=== PATIENT | male | born 1945 | race Caucasian/White ===

== ENCOUNTER → 2016-11-09 | Outpatient (CLI) | payer OTHER ==
[~2016-11-09] MED LIST: ADALAT CC60 MG PO; ALLOPURINOL100 MG PO; METOPROLOL SR25 MG PO; METOPROLOL SR50 MG PO; PHOS LO667 MG PO; PRAVASTATIN SOD40 MG PO; PRILOSEC20 MG PO; QUINAPRIL40 MG PO; SERTRALINE50 MG PO
[2016-11-09 11:07] LABS: CHOLESTEROL 127 mg/dL (<200); HDL CHOLESTEROL 63 mg/dl (40-60); LDL CHOLESTEROL 46 mg/dL (9-159); TRIGLYCERIDES 89 mg/dl (<150); VLDL CHOLESTEROL 18 mg/dL (6-40)
== END | disposition home or self-care (01) ==
LOC: LAB 10:21
PROVIDERS: Internal Medicine
DX: I10 Essential (primary) hypertension (principal); I25.9 Chronic ischemic heart disease, unspecified

== ENCOUNTER → 2017-06-24 | Outpatient (CLI) | payer OTHER | END | disposition home or self-care (01) | LOC: LAB 13:18 | DX: R19.7 Diarrhea, unspecified (principal) ==

== ENCOUNTER → 2017-08-01 | Outpatient (CLI) | payer OTHER | LOC: LAB 10:45 | DX: R19.7 Diarrhea, unspecified (principal) ==

== ENCOUNTER → 2017-09-02 | Outpatient (CLI) | payer OTHER | END | disposition home or self-care (01) | LOC: LAB 10:40 | DX: R19.7 Diarrhea, unspecified (principal) ==

== ENCOUNTER → 2017-10-11 | Outpatient (CLI) | payer OTHER ==
[2017-10-11 12:18] LABS: BILIRUBIN, DIRECT 0.2 mg/dL (0.0-0.2); CREATININE 4.28 mg/dL (0.70-1.30); POTASSIUM 3.8 mmol/L (3.5-5.1); TOTAL PROTEIN 7.2 gm/dL (6.4-8.2)
== END | disposition home or self-care (01) ==
LOC: LAB 10:52
PROVIDERS: Internal Medicine Cardiovascular Disease
DX: I12.0 Hypertensive chronic kidney disease with stage 5 chronic kidney disease or end stage renal disease (principal); N18.6 End stage renal disease; E78.5 Hyperlipidemia, unspecified; Z99.2 Dependence on renal dialysis; I25.5 Ischemic cardiomyopathy

== ENCOUNTER → 2018-01-01 | Outpatient (CLI) | payer OTHER ==
[2018-01-01 09:52] LABS: BASO % 0.6 % (0.0-1.0); EOS # 0.5 10*3/uL (0.0-0.4); EOS % 8.2 % (1.0-4.0); HEMATOCRIT 40.4 % (42.0-52.0); HEMOGLOBIN 12.9 g/dl (14.0-18.0); LYMPH # 0.7 10*3/uL (1.3-4.4); LYMPH % 11.6 % (27.0-41.0); MEAN CELL VOLUME 96.9 fl (80.0-94.0); MEAN CORPUSCULAR HGB 30.9 pg (27.0-31.0); MEAN CORPUSCULAR HGB CONC 31.9 g/dl (33.0-37.0); MEAN PLATELET VOLUME 10.1 fl (9.6-12.3); MONO # 0.4 10*3/uL (0.1-1.0); MONO % 6.3 % (3.0-9.0); NEUT # 4.6 10*3/uL (2.3-7.9); PLATELET COUNT AUTOMATED 126 10*3/uL (130-400); RED BLOOD COUNT 4.17 10*6/uL (4.50-5.90); RED CELL DISTRI WIDTH 13.6 % (0-14.5); WHITE BLOOD COUNT 6.3 10*3/uL (4.8-10.8)
[2018-01-01 10:23] LABS: CREATININE 5.83 mg/dL (0.70-1.30); POTASSIUM 4.5 mmol/L (3.5-5.1); TOTAL PROTEIN 7.1 gm/dL (6.4-8.2)
== END | disposition home or self-care (01) ==
LOC: LAB 09:18
PROVIDERS: Internal Medicine
DX: I25.9 Chronic ischemic heart disease, unspecified (principal); I10 Essential (primary) hypertension; Z68.23 Body mass index [BMI] 23.0-23.9, adult

== ENCOUNTER 2018-02-23 11:19 | Emergency (ER) | payer OTHER ==
[~2018-02-23] VITALS: Ht 180.3 cm; Wt 71.7 kg
[2018-02-23] MEDS ORDERED: SEPTDS PO (11:53)
[2018-02-23] MEDS ORDERED: KEFLEX500 M1 PO (11:53)
[2018-03-18] MEDS ORDERED: PROTONIX40 M1 PO (08:57)
[2018-03-18] MEDS ORDERED: ISORDIL10 M1 PO (08:58)
[2018-03-18] MEDS ORDERED: HEART PILL PO (08:59)
[2018-03-18] MEDS ORDERED: ALDACTONE25 MG PO (09:00)
[2018-03-18] MEDS ORDERED: RENAL CAPS SOFTG1 MG PO (09:01)
[2018-03-18] MEDS ORDERED: CALCIUM ACETAT667 MG PO (11:43)
[2018-03-18] MEDS ORDERED: TOPROL XL25 MG PO (11:44)
[2018-03-18] MEDS ORDERED: TOPROL XL50 M1 PO (11:44)
[2018-03-18] MEDS ORDERED: Synthroid,Levo50 MCG PO (11:45)
[2018-03-18] MEDS ORDERED: NIFEDIPINE ER60 M1 PO (11:46)
[2018-03-18] MEDS ORDERED: IMDUR SA60 M1 PO (15:44)
[2018-03-18] MEDS ORDERED: ZOLOFT50 MG PO (15:48)
[2018-03-18] MEDS ORDERED: METAMUCIL FIBE3.4 GM PO (15:50)
[2018-03-18] MEDS ORDERED: IMODIUM A-D2 M2 PO (21:10)
[2018-03-20] MEDS ORDERED: TOPROL XL50 M1 PO (16:14)
== END 2018-02-23 11:57 | disposition home or self-care (01) ==
LOC: ED 11:19
DX: L02.414 Cutaneous abscess of left upper limb (principal); R03.0 Elevated blood-pressure reading, without diagnosis of hypertension; Z79.899 Other long term (current) drug therapy; Z88.5 Allergy status to narcotic agent

== ENCOUNTER → 2018-07-15 | Outpatient (CLI) | payer OTHER ==
[~2018-07-15] MED LIST changes: +ALDACTONE25 MG PO; +CALCIUM ACETAT667 MG PO; +HEART PILL PO; +IMDUR SA60 M1 PO; +IMODIUM A-D2 M2 PO; +ISORDIL10 M1 PO; +KEFLEX500 M1 PO; +METAMUCIL FIBE3.4 GM PO; +NIFEDIPINE ER60 M1 PO; +PROTONIX40 M1 PO; +RENAL CAPS SOFTG1 MG PO; +SEPTDS PO; +Synthroid,Levo50 MCG PO; +TOPROL XL25 MG PO; +TOPROL XL50 M1 PO; +ZOLOFT50 MG PO
== END | disposition home or self-care (01) ==
LOC: LAB 07-14 16:07
DX: R19.7 Diarrhea, unspecified (principal)

== ENCOUNTER → 2018-08-03 | Outpatient (CLI) | payer OTHER ==
[2018-08-10 18:03] LABS: FATS, NEUTRAL Normal (.); FATS, TOTAL Normal (.)
== END ==
LOC: LAB 10:03
PROVIDERS: Internal Medicine Gastroenterology
DX: R19.7 Diarrhea, unspecified (principal)

== ENCOUNTER → 2018-08-04 | Outpatient (CLI) | payer OTHER ==
[2018-08-05 15:04] LABS: t-TRANSGLUTAMINASE (tTG) IGA <2 U/mL (0-3)
== END | disposition home or self-care (01) ==
LOC: LAB 02:57
PROVIDERS: Internal Medicine Gastroenterology
DX: R19.7 Diarrhea, unspecified (principal)

== ENCOUNTER → 2019-02-06 | Outpatient (CLI) | payer OTHER ==
[~2019-02-06] MED LIST changes: +METOPROLOL SUCC50 M1 PO
[2019-02-06 10:41] LABS: BASO % 0.4 % (0.0-1.0); EOS # 0.3 10*3/uL (0.0-0.4); EOS % 5.1 % (1.0-4.0); HEMATOCRIT 45.1 % (42.0-52.0); HEMOGLOBIN 14.7 g/dl (14.0-18.0); LYMPH # 0.8 10*3/uL (1.3-4.4); LYMPH % 15.3 % (27.0-41.0); MEAN CELL VOLUME 97.8 fl (80.0-94.0); MEAN CORPUSCULAR HGB 31.9 pg (27.0-31.0); MEAN CORPUSCULAR HGB CONC 32.6 g/dl (33.0-37.0); MEAN PLATELET VOLUME 10.6 fl (9.6-12.3); MONO # 0.3 10*3/uL (0.1-1.0); MONO % 6.3 % (3.0-9.0); NEUT # 3.6 10*3/uL (2.3-7.9); NEUT % 72.7 % (47.0-73.0); PLATELET COUNT AUTOMATED 105 10*3/uL (130-400); RED BLOOD COUNT 4.61 10*6/uL (4.50-5.90); WHITE BLOOD COUNT 4.9 10*3/uL (4.8-10.8)
[2019-02-06 10:47] LABS: INTERNATIONAL NORM RATIO 1.1 (2.0-3.5)
[2019-02-06 11:19] LABS: ALBUMIN 3.1 gm/dl (3.1-4.5); BILIRUBIN, DIRECT 0.1 mg/dL (0.0-0.2); CREATININE 6.64 mg/dL (0.70-1.30); POTASSIUM 4.2 mmol/L (3.5-5.1); TOTAL PROTEIN 7.2 gm/dL (6.4-8.2)
[2019-02-07 07:08] LABS: AFP TUMOR MARKER 002253 12.8 ng/mL (0.0-8.3); ALPHA-1-ANTITRYPSIN, SERUM 155 mg/dL (90-200); IMMUNOGLOBULIN G, QNT 1175 mg/dL (700-1600); IMMUNOGLOBULIN M, QNT 62 mg/dL (15-143)
[2019-02-07 13:04] LABS: HEPATITIS B SURFACE AB 006395 Reactive (.); HEPATITIS B SURFACE AG Negative (Negative)
[2019-02-08 15:07] LABS: ANTI-SMOOTH MUSCLE ANTIBODY 8 Units (0-19)
[2019-02-08 15:07] LABS: LIVER-KIDNEY MICROSOMAL AB <1.0 Units (0.0-20.0)
[2019-02-08 16:08] LABS: EBV NUCLEAR ANTIGEN IGG <18.0 U/mL (0.0-17.9); EPSTEIN-BARR VCA IGG AB <18.0 U/mL (0.0-17.9); EPSTEIN-BARR VCA IGM AB <36.0 U/mL (0.0-35.9)
[2019-02-09 07:05] LABS: AST (SGOT) P5P 20 IU/L (0-40); CHOLESTEROL, TOTAL 135 mg/dL (100-199); GLUCOSE, SERUM 76 mg/dL (65-99); TRIGLYCERIDES 131 mg/dL (0-149)
[2019-02-09 09:09] LABS: CMV QNT Negative (Negative)
== END | disposition home or self-care (01) ==
LOC: LAB 08:19
PROVIDERS: Internal Medicine Gastroenterology
DX: Z11.4 Encounter for screening for human immunodeficiency virus [HIV] (principal); Z11.59 Encounter for screening for other viral diseases; Z01.818 Encounter for other preprocedural examination; R93.2 Abnormal findings on diagnostic imaging of liver and biliary tract; R16.1 Splenomegaly, not elsewhere classified; D69.9 Hemorrhagic condition, unspecified

== ENCOUNTER 2019-03-13 21:18 | Inpatient (IN) | payer OTHER ==
[~2019-03-13] VITALS: Ht 177.8 cm; Wt 74.0 kg
--- NOTE | ~2019-03-13 | EKG ---
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
--- NOTE | ~2019-03-13 | CON ---
[place], [place] REPORT OF CONSULTATION NAME: POLLY MONROE UNIT #: [id number] ROOM: 420 DOCTOR: MEENAKSHI ALDANA MD BIRTHDATE: [birth year] DOS: 03/14/2019 ADDENDUM This is an addendum to the consult note done by the nurse practitioner, Alannah Hampton, on 03/14/2019. I agree with the assessment and plan, reviewed the labs and imaging, made the necessary changes in the note. Meenakshi Aldana MD CM:CONSTR:REPORT OF CONSULTATION 1655 03/16/19 0355 interface
--- NOTE | ~2019-03-13 | CON ---
[place], [place] REPORT OF CONSULTATION NAME: POLLY MONROE UNIT #: [id number] ROOM: 420 DOCTOR: LEEANNE PLATA,NOVEMBER BIRTHDATE: [birth year] DOS: 03/14/2019 HISTORY OF PRESENT ILLNESS: The patient is a 73-year-old male who was admitted from home yesterday. He had been found by neighbors wandering in the street with only pajama, pants and open shirt, very confused and yelling. He was taken back to his house by his neighbors. His had been briefly to the store for something that he requested. Police and an ambulance were called. He had had progressively worsening confusion over the last 9 days as well as not feeling well and poor appetite. He was seen in the ER here approximately 5 days ago, was felt to possibly have viral infection. History is obtained per review of the chart and discussion with the patient's as the patient is very confused and unable to give any history. Over the last 9 days, he had no fevers at home, no rashes, has had one day of abdominal pain. No complaints of headaches, not really much in the way of constitutional complaints. According to his , he did have a temperature of 103 here at one point and then again at 101. He had an episode similar to this in 2016 when he had what sounds like was a herpetic encephalitis, started on acyclovir. He did have a lumbar puncture in the ER. HSV by PCR is pending as well as other workup. CSF Gram stain had no organisms and no wbc's. Blood cultures remained sterile. WBCs were 6, 100% lymphocytes, protein was 94.7, glucose 51. He also had a cryptococcal antigen check from the CSF. PAST MEDICAL HISTORY: As above as well as hemodialysis dependent due to polycystic kidney disease, prostate cancer, normocytic anemia, L2 vertebral fracture, hypothyroidism, GERD. He has had a colostomy and then reversal of that, coronary artery stent, left nephrectomy, left knee surgery. SOCIAL HISTORY: , nonsmoker, nondrinker, no illicit drug use. FAMILY MEDICAL HISTORY: Mother with polycystic kidney disease. Father at the age of 87, reason unknown. ALLERGIES: DEMEROL. CURRENT MEDICATIONS: Ativan, heparin, acyclovir, Protonix, Zofran, milk of mag, Higbee, Dulcolax, Tylenol. LABORATORY DATA: CSF as above. WBCs 5.6, platelets 145. Slight left shift with neutrophils 82.5. BUN is 26, creatinine 4.98. Lactic acid was 1.0 on admission. LFTs are within normal limits. REVIEW OF SYSTEMS: Unable to obtain any review of systems from the patient, although he does currently deny pain. He is extremely confused, does not know where he is, situation, etc. History is as per his as above. There were no fevers documented here. PHYSICAL EXAMINATION: VITAL SIGNS: Temperature 97.9, pulse 105, respirations 18, BP 132/64. GENERAL: A 73-year-old male, very confused, in no acute distress. HEENT: Normocephalic, atraumatic. Pupils equal, round and reactive to light. [place], [place] REPORT OF CONSULTATION NAME: POLLY MONROE UNIT #: [id number] ROOM: 420 DOCTOR: LEEANNE PLATANOVEMBER BIRTHDATE: [birth year] Oropharynx is clear. No thrush. Tacky mucous membranes. No cervical lymphadenopathy. NECK: Supple without pain. LUNGS: Clear to auscultation bilaterally. Respirations even and unlabored. HEART: Regular rhythm. No murmur appreciated. ABDOMEN: Soft, nontender. Multiple scars and soft reducible hernias noted. EXTREMITIES: No edema, deformity or cyanosis. Has +2 bilateral radial and +2 bilateral dorsalis pedis pulses. Left upper extremity AV fistula, positive thrill. No erythema or tenderness. ASSESSMENT: Encephalopathy. He has a history of HSV encephalitis. CT of the head is unremarkable for any acute pathology. LP is not impressive. PLAN: At this point, we will continue the acyclovir. Await the HSV by PCR. He is also on fluids as per his attending, which is necessary in the setting of the IV acyclovir to help prevent kidney injury. He is awaiting transfer to [facility] where he needs to have an MRI of the brain, which we are unable to do here at this time. NOVEMBER BONI FALLON Meenakshi Preciado MD CM:CONSTR:REPORT OF CONSULTATION 1643 03/14/19 1711 interface
[2019-03-13 21:19] VITALS: BP 143/78
[2019-03-13 21:51] LABS: BASO % 0.2 % (0.0-1.0); EOS # 0.1 10*3/uL (0.0-0.4); EOS % 0.9 % (1.0-4.0); HEMATOCRIT 39.3 % (42.0-52.0); HEMOGLOBIN 12.7 g/dl (14.0-18.0); LYMPH # 0.5 10*3/uL (1.3-4.4); LYMPH % 9.4 % (27.0-41.0); MEAN CELL VOLUME 95.9 fl (80.0-94.0); MEAN CORPUSCULAR HGB CONC 32.3 g/dl (33.0-37.0); MEAN PLATELET VOLUME 10.1 fl (9.6-12.3); MONO # 0.4 10*3/uL (0.1-1.0); MONO % 6.1 % (3.0-9.0); NEUT # 4.8 10*3/uL (2.3-7.9); NEUT % 82.7 % (47.0-73.0); PLATELET COUNT AUTOMATED 166 10*3/uL (130-400); RED CELL DISTRI WIDTH 13.8 % (0-14.5); WHITE BLOOD COUNT 5.8 10*3/uL (4.8-10.8)
[2019-03-13 22:02] LABS: ACT PARTIAL THROMBO TIME 29.1 SECONDS (20.0-32.1); INTERNATIONAL NORM RATIO 1.2 (2.0-3.5)
[2019-03-13 22:05] LABS: ALBUMIN 2.4 gm/dl (3.1-4.5); ALKALINE PHOSPHATASE 105 U/L (45-117); BUN 24 mg/dl (7-24); CHLORIDE 97 mmol/L (98-107); CREATININE 4.32 mg/dL (0.70-1.30); LIPASE 218 U/L (73-393); POTASSIUM 3.3 mmol/L (3.5-5.1); SGOT/AST 20 IU/L (3-35); SGPT/ALT 19 U/L (12-78); SODIUM 139 mmol/L (136-145)
[2019-03-13 22:08] LABS: ACETAMINOPHEN (TYLENOL) < 5.0 ug/ml (10-30); ETHYL ALCOHOL < 3.0 mg/dl (<3)
--- NOTE | 2019-03-13 22:20 | NUR ---
PT PROVIDED URINAL AND PROMOTED FOR URINE SAMPLE. STATES HE USUALLY NEVER URINATES D/T DIALYSIS BUT WILL ATTEMPT. REFUSES CATHETERIZATION.
[2019-03-13 22:30] VITALS: BP 141/78
[2019-03-13 23:26] VITALS: BP 143/79
[2019-03-13 23:35] VITALS: BP 132/77
[2019-03-13 23:45] VITALS: BP 155/78
[2019-03-13 23:55] VITALS: BP 188/99
[2019-03-14] VITALS (9 sets, daily range): BP systolic 126–157; BP diastolic 64–85
--- NOTE | 2019-03-14 | NUR ---
DR GARCIA NOTIFIED OF PATIENT INABILITY TO PROVIDE URINE SPECIMEN
[2019-03-14 00:41] LABS: CSF RBC < 1000 /uL; CSF WBC 6 /uL
[2019-03-14 00:50] LABS: CSF GLUCOSE 51 mg/dL (40-70); CSF TOTAL PROTEIN 94.7 mg/dL (15-45)
[2019-03-14 00:59] LABS: CLARITY CLEAR; COLOR COLORLESS
[2019-03-14 01:21] LABS: CSF LYMPHOCYTES 100 % (40-80)
--- NOTE | 2019-03-14 01:27 | NUR ---
A 73, admitted to , under the services of VAHE Barlow DO with a diagnosis of METABOLIC ENCEPHALOPATHY. Chief complaint is ALTERED MENTAL STATUS. Patient arrived via stretcher from ER. Monitor applied. Initial assessment completed. Vital signs taken and recorded. VAHE BARLOW DO notified of admission to the unit. Orders received. See assessment for past medical history, medications and allergies. Patient and/or family oriented to unit. [facility] ROOM 420 visitation policy reviewed. Clothing/patient valuable form completed. CAMILLE BRAUN
--- NOTE | 2019-03-14 03:31 | NUR ---
PATIENT AGGITATED AND RESTLESS, SETTING OF BED ALARM AND YELLING, MEDICATED WITH ATATARX 10MG ORDERED X 1 DOSE.
--- NOTE | 2019-03-14 04:31 | NUR ---
PATIENTS YELLING DECREASED, REMAINS AGGITATED,ATTEMPTS MADE TO REDIRECT PATIENT, GIVEN WARM BLANKET.
--- NOTE | 2019-03-14 05:30 | NUR ---
PATIENT REMAINS AGGITATED AND BECOMING COMBATIVE, PULLING OFF HEART MONITOR UNABLE TO REDIRECT, YELLING AND SCREAMING. NOTIFIED DR. MEEKS
--- NOTE | 2019-03-14 05:57 | NUR ---
PATIENT MEDICATED ORDERED WITH ATARAX 10MG.
--- NOTE | 2019-03-14 06:15 | NUR ---
NO EFFECT FROM ATARAX, ORDERED LORAZEPAM 0.5MG
--- NOTE | 2019-03-14 06:15 | NUR ---
CALLED DR. MEEKS AND NOTIFIED HIM PT. BEHAVIOR ESCALATING PT. YELLING AT STAFF AND COMING AT STAFF. OTHER RN'S WERE ABLE TO CALM PATIENT TO A POINT OF THE PATIENT SITTING BACK DOWN IN THE BED. RN CALLED AND SHE IS TO BE COMING.
--- NOTE | 2019-03-14 06:33 | NUR ---
CALLED [facility] TO HAVE ATIVAN STAT.
[2019-03-14 07:03] LABS: BASO % 0.2 % (0.0-1.0); EOS # 0.1 10*3/uL (0.0-0.4); EOS % 1.1 % (1.0-4.0); HEMATOCRIT 39.5 % (42.0-52.0); HEMOGLOBIN 12.5 g/dl (14.0-18.0); LYMPH # 0.6 10*3/uL (1.3-4.4); LYMPH % 10.8 % (27.0-41.0); MEAN CELL VOLUME 96.8 fl (80.0-94.0); MEAN CORPUSCULAR HGB 30.6 pg (27.0-31.0); MEAN CORPUSCULAR HGB CONC 31.6 g/dl (33.0-37.0); MEAN PLATELET VOLUME 10.2 fl (9.6-12.3); MONO # 0.3 10*3/uL (0.1-1.0); MONO % 4.9 % (3.0-9.0); NEUT # 4.6 10*3/uL (2.3-7.9); NEUT % 82.5 % (47.0-73.0); PLATELET COUNT AUTOMATED 145 10*3/uL (130-400); RED BLOOD COUNT 4.08 10*6/uL (4.50-5.90); RED CELL DISTRI WIDTH 13.9 % (0-14.5); WHITE BLOOD COUNT 5.6 10*3/uL (4.8-10.8)
[2019-03-14 07:32] LABS: ALBUMIN 2.5 gm/dl (3.1-4.5); CREATININE 4.98 mg/dL (0.70-1.30); PHOSPHOROUS 2.1 mg/dL (2.5-4.9); POTASSIUM 3.1 mmol/L (3.5-5.1); TOTAL PROTEIN 6.7 gm/dL (6.4-8.2)
[2019-03-14 07:38] LABS: THYROID STIM HORMONE (HS) 2.44 uIU/ml (0.358-4.75)
[2019-03-14 07:42] LABS: VITAMIN D, 25-HYDROXY 22.3 ng/mL (30-100)
[2019-03-14 07:47] LABS: INTERNATIONAL NORM RATIO 1.2 (2.0-3.5)
--- NOTE | 2019-03-14 07:47 | NUR ---
CALL PLACED TO ANSWERING SERVICE, SPOKE WITH TRISTAN, ADVISED DR. BARR WILL BE CALLING IN HE IS ASSURANCE SENIOR FOR [facility].
--- NOTE | 2019-03-14 08:00 | NUR ---
CALL PLACED TO DR. SOLIS COVERING FOR DR. DAMIAN FOR CONSULT FOR POSSIBLE VIRAL ENCEPHLOPATHY.
--- NOTE | 2019-03-14 14:30 | NUR ---
PT VERY CONFUSED AND TRYING TO LEAVE. HE STATES WE ARE CONSPIRING TO "KEEP HIM HERE UNTIL THEY PUT HIM IN THE NUT [place]!" HE IS YELLING AND PUSHING STAFF. DR AVENDAÑO INFORMED.
--- NOTE | 2019-03-14 19:00 | NUR ---
PT AWAKE IN BED DURING BEDSIDE SHIFT REPORT. NO C/O VOICED. BED IN LOW POSITION W/WHEELS LOCKED AND ALARM ON. CALL LIGHT IN REACH.
--- NOTE | 2019-03-14 20:35 | NUR ---
HELENE W/DR. BARR RE PT BEING TRANSFERRED TO [facility]. ADVISED THAT THERE IS NO NURSES NOTE OR PHYSICIAN NOTE RE TRANSFER. ONE CALL PHONED AND THEY ARE AWAITING FOR A BED AT THIS TIME.
--- NOTE | 2019-03-14 20:47 | NUR ---
DR. BARR NOTIFIED OF WE ARE WAITING ON A BED AT [facility]. ASKED TO MAKE SURE THAT DR. FAUSTINO Marina/HAYDEE IS CONSULTED WHEN TRANSFERRED.
[2019-03-15] VITALS: BP 148/73
--- NOTE | 2019-03-15 02:23 | NUR ---
PT CONTINUOUSLY GETTING OOB UNASSISTED. GAIT UNSTEADY. PT CONFUSED TO TIME AND PLACE. RE-ORIENTATION INEFFECTIVE. PT ASSISTED TO AMBULATE IN HALLWAY THEN BACK TO BED. MEDICATED W/ATIVAN IVP 1MG ORDERED. BED ALARM ON AND CALL LIGHT IN REACH.
--- NOTE | 2019-03-15 03:00 | NUR ---
PT RESTING QUIETLY IN BED AT THIS TIME. PRN ATIVAN EFFECTIVE.
--- NOTE | 2019-03-15 03:04 | NUR ---
SEBASTIAN BRUSH PHONED FOR NURSE TO NURSE REPORT. BED IS STILL UNAVAILABLE AT THIS TIME. WILL CALL WHEN BED BECOMES AVAILABLE.
[2019-03-15 06:15] LABS: BASO % 0.3 % (0.0-1.0); EOS # 0.2 10*3/uL (0.0-0.4); EOS % 2.6 % (1.0-4.0); HEMATOCRIT 37.7 % (42.0-52.0); HEMOGLOBIN 11.8 g/dl (14.0-18.0); LYMPH # 0.6 10*3/uL (1.3-4.4); LYMPH % 10.9 % (27.0-41.0); MEAN CELL VOLUME 96.4 fl (80.0-94.0); MEAN CORPUSCULAR HGB 30.2 pg (27.0-31.0); MEAN CORPUSCULAR HGB CONC 31.3 g/dl (33.0-37.0); MEAN PLATELET VOLUME 10.5 fl (9.6-12.3); MONO # 0.4 10*3/uL (0.1-1.0); MONO % 6.4 % (3.0-9.0); NEUT # 4.6 10*3/uL (2.3-7.9); NEUT % 78.9 % (47.0-73.0); PLATELET COUNT AUTOMATED 173 10*3/uL (130-400); RED BLOOD COUNT 3.91 10*6/uL (4.50-5.90); RED CELL DISTRI WIDTH 13.8 % (0-14.5); WHITE BLOOD COUNT 5.8 10*3/uL (4.8-10.8)
[2019-03-15 06:49] LABS: ALBUMIN 2.1 gm/dl (3.1-4.5); POTASSIUM 3.8 mmol/L (3.5-5.1)
[2019-03-15 06:52] LABS: CREATININE 6.74 mg/dL (0.70-1.30); TOTAL PROTEIN 5.9 gm/dL (6.4-8.2)
--- NOTE | 2019-03-15 07:05 | NUR ---
PT BECOMING AGITATED AND RESTLESS. PT WALKED W/STAFF IN HALLWAY. RE-DIRECTION AND RE-ORIENTATION INEFFECTIVE. PT SAT IN CHAIR IN ROOM W/BODY ALARM ON.
--- NOTE | 2019-03-15 07:10 | NUR ---
PT AWAKE. REFUSING TO STAY IN HIS ROOM. WHEN ATEMPTING TO ASSIST HIM TO HIS BED/CHAIR HE SAT ON THE FLOOR. PT RAISING HIS VOICE. AFTER GETTING PT BACK TO BED I ADMINISTERED IV ATIVAN PER ORDER. WILL MONITOR FOR EFFECTIVENESS. BED LOW. ALARM ON.
[2019-03-15 08:00] VITALS: BP 156/82
--- NOTE | 2019-03-15 08:00 | NUR ---
Patient resting quietly with no c/o discomfort. Respirations easy and regular. Vital signs stable. No overt distress. HARDIK CORTEZ
--- NOTE | 2019-03-15 09:00 | NUR ---
Batch Operator in to talk to patient. Patient states lives at home with . There are few steps in the home. Physician: [facility] Pharmacy: [facility] health services: none Patient's level of ADLs: MINIMAL ASSIST Patient has working utilities: all working DME: cane/walker Follow-up physician's appointment after d/c: will be made by hospitalist nurse director upon discharge Does patient want to access PORTAL?: no Discharge plan . patient is somewhat confused at this time, per notes, patient is waiting to be transferred to [facility], case management will follow. DOUGLAS PERDUE
--- NOTE | 2019-03-15 11:42 | NUR ---
PTS IN TO SEE HIM. I EXP[LAINED THAT WE ARE STILL AWAITING A CALL FROM [facility] FOR A BED TO TRANFER PT.
[2019-03-15 12:00] VITALS: BP 166/88
--- NOTE | 2019-03-15 13:21 | NUR ---
SPOKE TO [facility] REGARDING PT TRANSFER. THERE IS STILL NO AVAILABLE BED
--- NOTE | 2019-03-15 13:30 | NUR ---
PTS CALLED TELEGRAPH EQUIPMENT MAINTAINER TO TRY AND EXPEDIATE THE PROCESS OF GETTING PT TRANSFERRED TO [facility]. DR WELSH INFORMED
--- NOTE | 2019-03-15 13:55 | NUR ---
SPOKE TO DR WELSH AND INFORMED HIM THAT PTS CONFUSION IS WORSENING. I INQUIRED ABOUT OBTAINING AN MRI. ORDERS RECEIVED.
--- NOTE | 2019-03-15 16:18 | NUR ---
RECEIVED A CALL FROM [facility] REGARDING CRITICAL RESULTS OF PTS MRI. DR WELSH NOTIFIED. ORDER TO CALL [facility] AND SEE ABOUT EXPIDITING TRANSFER. I SPOKE TO DR FELIX REGARDING RECENT MRI RESULTS IN REFERENCE TO CURRENT PLAN TO TRANSFER. PER DR FELIX HE WILL SPEAK TO HIS TEAM AND CALL BACK WITH DETAILS FOR TRANSFER.
--- NOTE | 2019-03-15 17:05 | NUR ---
REPORT GIVEN TO NURSE HUDSON AT [facility] ER.
--- NOTE | 2019-03-15 17:39 | NUR ---
PT BEING TRANSFERRED TO [facility]. PT LEFT FLOOR VIA STRETCHER IN THE CARE OF [facility]. PACKET SENT WITH PT. WILL FOLLOW IN HER CAR
[2019-03-17 08:11] LABS: HSV-2 DNA Negative (Negative)
[2019-03-17 14:11] LABS: CSF CRYPTOCOCCUS AG Negative (Negative)
== END 2019-03-15 17:39 | disposition short-term general hospital (02) | DRG 64 ==
LOC: ED 21:18 → 4E 03-14 00:45 → EDHOLD 03-14 00:45 → 4E 03-14 00:54
PROVIDERS: Internal Medicine; Student in an Organized Health Care Education/Training Program; ADMIT Internal Medicine
PROC: 009U3ZX Drainage of Spinal Canal, Percutaneous Approach, Diagnostic (ICD-10-PCS; principal; 2019-03-14)
DX: I63.9 Cerebral infarction, unspecified (principal); G93.41 Metabolic encephalopathy; N18.6 End stage renal disease; E43 Unspecified severe protein-calorie malnutrition; R65.10 Systemic inflammatory response syndrome (SIRS) of non-infectious origin without acute organ dysfunction; I12.0 Hypertensive chronic kidney disease with stage 5 chronic kidney disease or end stage renal disease; D72.810 Lymphocytopenia; E87.6 Hypokalemia; K42.9 Umbilical hernia without obstruction or gangrene; E03.9 Hypothyroidism, unspecified; M19.90 Unspecified osteoarthritis, unspecified site; I25.10 Atherosclerotic heart disease of native coronary artery without angina pectoris; N28.1 Cyst of kidney, acquired; K21.9 Gastro-esophageal reflux disease without esophagitis; R06.82 Tachypnea, not elsewhere classified; E83.39 Other disorders of phosphorus metabolism; D53.9 Nutritional anemia, unspecified; Z88.8 Allergy status to other drugs, medicaments and biological substances; Z87.01 Personal history of pneumonia (recurrent); Z85.46 Personal history of malignant neoplasm of prostate; Z95.5 Presence of coronary angioplasty implant and graft; Z99.2 Dependence on renal dialysis; Z90.5 Acquired absence of kidney; Z84.1 Family history of disorders of kidney and ureter; Z79.899 Other long term (current) drug therapy; Z68.23 Body mass index [BMI] 23.0-23.9, adult

== ENCOUNTER 2019-05-13 09:58 | Emergency (ER) | payer OTHER ==
[~2019-05-13] VITALS: Wt 78.0 kg
--- NOTE | ~2019-05-13 | EKG ---
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 Atrial tachycardia Vs. Atrial Flutter with block Borderline low voltage, extremity leads Anteroseptal infarct, old Minimal ST depression, diffuse leads Minimal ST elevation, lateral leads Prolonged QT interval Compared to ECG 03/13/2019 21:28:26 Junctional tachycardia now present ST (T wave) deviation now present Prolonged QT interval now present Sinus tachycardia no longer present Myocardial infarct finding still present Electronically Signed On 05-14-2019 12:11:49 PDT by Daria Echeverria CM:EKGRPT:ELECTROCARDIOGRAM REPORT 1023 1211 JONA CHOW DRAFT REPORT JONA FRANKLIN M.D.
[2019-05-13 10:39] LABS: BASO % 0.5 % (0.0-1.0); EOS # 0.1 10*3/uL (0.0-0.4); EOS % 1.4 % (1.0-4.0); HEMATOCRIT 33.9 % (42.0-52.0); HEMOGLOBIN 10.9 g/dl (14.0-18.0); LYMPH # 0.5 10*3/uL (1.3-4.4); LYMPH % 7.9 % (27.0-41.0); MEAN CELL VOLUME 95.2 fl (80.0-94.0); MEAN CORPUSCULAR HGB 30.6 pg (27.0-31.0); MEAN CORPUSCULAR HGB CONC 32.2 g/dl (33.0-37.0); MEAN PLATELET VOLUME 10.5 fl (9.6-12.3); MONO # 0.2 10*3/uL (0.1-1.0); MONO % 3.9 % (3.0-9.0); NEUT # 5.4 10*3/uL (2.3-7.9); PLATELET COUNT AUTOMATED 130 10*3/uL (130-400); RED BLOOD COUNT 3.56 10*6/uL (4.50-5.90); RED CELL DISTRI WIDTH 14.8 % (0-14.5); WHITE BLOOD COUNT 6.2 10*3/uL (4.8-10.8)
[2019-05-13 10:53] LABS: ALBUMIN 2.7 gm/dl (3.1-4.5); CREATININE 9.83 mg/dL (0.70-1.30); POTASSIUM 4.1 mmol/L (3.5-5.1); TOTAL PROTEIN 6.2 gm/dL (6.4-8.2)
== END 2019-05-13 11:30 | disposition short-term general hospital (02) ==
LOC: ED 09:58
PROVIDERS: Emergency Medicine
DX: I62.00 Nontraumatic subdural hemorrhage, unspecified (principal); I25.10 Atherosclerotic heart disease of native coronary artery without angina pectoris; E03.9 Hypothyroidism, unspecified; K21.9 Gastro-esophageal reflux disease without esophagitis; I12.0 Hypertensive chronic kidney disease with stage 5 chronic kidney disease or end stage renal disease; N18.6 End stage renal disease; M19.90 Unspecified osteoarthritis, unspecified site; Z99.2 Dependence on renal dialysis; Z79.899 Other long term (current) drug therapy; Z88.6 Allergy status to analgesic agent

== ENCOUNTER 2019-10-06 12:29 | Emergency (ER) | payer OTHER ==
[~2019-10-06] VITALS: Ht 180.3 cm; Wt 72.6 kg
[2019-10-06] MEDS ORDERED: NORCO 5-325 TA1 EACH PO (15:10)
== END 2019-10-06 15:12 | disposition home or self-care (01) ==
LOC: ED 12:29
DX: M25.562 Pain in left knee (principal); N18.9 Chronic kidney disease, unspecified; Z88.8 Allergy status to other drugs, medicaments and biological substances; Z79.899 Other long term (current) drug therapy; Z90.5 Acquired absence of kidney; Z98.890 Other specified postprocedural states; X50.1XXA Overexertion from prolonged static or awkward postures, initial encounter; Y93.01 Activity, walking, marching and hiking; Y92.89 Other specified places as the place of occurrence of the external cause; Y99.8 Other external cause status

== ENCOUNTER 2019-10-19 10:42 | Emergency (ER) | payer OTHER ==
[~2019-10-19 10:42] MED LIST changes: +NORCO 5-325 TA1 EACH PO
[2019-10-19 11:31] LABS: BASO % 0.3 % (0.0-1.0); EOS % 0.2 % (1.0-4.0); HEMATOCRIT 39.5 % (42.0-52.0); LYMPH # 0.4 10*3/uL (1.3-4.4); LYMPH % 6.7 % (27.0-41.0); MEAN CORPUSCULAR HGB CONC 32.9 g/dl (33.0-37.0); MEAN PLATELET VOLUME 10.2 fl (9.6-12.3); MONO # 0.3 10*3/uL (0.1-1.0); MONO % 5.1 % (3.0-9.0); NEUT # 5.6 10*3/uL (2.3-7.9); NEUT % 87.2 % (47.0-73.0); PLATELET COUNT AUTOMATED 115 10*3/uL (130-400); RED CELL DISTRI WIDTH 14.6 % (0-14.5); WHITE BLOOD COUNT 6.4 10*3/uL (4.8-10.8)
[2019-10-19 11:44] LABS: ALBUMIN 3.5 gm/dl (3.1-4.5); CREATININE 5.9 mg/dL (0.70-1.30); POTASSIUM 4.9 mmol/L (3.5-5.1); TOTAL PROTEIN 7.3 gm/dL (6.4-8.2)
[2019-10-19 11:46] LABS: ACT PARTIAL THROMBO TIME 28.2 SECONDS (20.0-32.1); INTERNATIONAL NORM RATIO 1.2 (2.0-3.5)
[2019-10-19 11:52] LABS: TROPONIN I 0.243 ng/ml (<0.045)
== END 2019-10-19 12:15 | disposition short-term general hospital (02) ==
LOC: ED 10:42
PROVIDERS: Family Medicine
DX: S06.5X9A Traumatic subdural hemorrhage with loss of consciousness of unspecified duration, initial encounter (principal); I25.10 Atherosclerotic heart disease of native coronary artery without angina pectoris; I12.0 Hypertensive chronic kidney disease with stage 5 chronic kidney disease or end stage renal disease; N18.6 End stage renal disease; K21.9 Gastro-esophageal reflux disease without esophagitis; E03.9 Hypothyroidism, unspecified; Z88.8 Allergy status to other drugs, medicaments and biological substances; Z79.899 Other long term (current) drug therapy; X58.XXXA Exposure to other specified factors, initial encounter; Y93.89 Activity, other specified; Y92.89 Other specified places as the place of occurrence of the external cause; Y99.8 Other external cause status

== ENCOUNTER → 2019-11-11 | Outpatient (CLI) | payer OTHER | END | disposition home or self-care (01) | LOC: CT 08:24 | DX: S72.112A Displaced fracture of greater trochanter of left femur, initial encounter for closed fracture (principal); X58.XXXA Exposure to other specified factors, initial encounter; Y93.89 Activity, other specified; Y92.89 Other specified places as the place of occurrence of the external cause; Y99.8 Other external cause status ==

== ENCOUNTER → 2019-11-18 | Outpatient (CLI) | payer OTHER | END | disposition home or self-care (01) | LOC: MRI 09:00 → CT 09:41 → MRI 11:00 | DX: M25.531 Pain in right wrist (principal); M79.641 Pain in right hand; R93.6 Abnormal findings on diagnostic imaging of limbs ==

== ENCOUNTER 2019-12-15 09:09 | Emergency (ER) | payer OTHER ==
[~2019-12-15] VITALS: Ht 170.1 cm; Wt 70.3 kg
[2019-12-15 09:56] LABS: BASO % 0.5 % (0.0-1.0); EOS % 0.7 % (1.0-4.0); HEMATOCRIT 31.4 % (42.0-52.0); LYMPH # 0.5 10*3/uL (1.3-4.4); MEAN CELL VOLUME 97.8 fl (80.0-94.0); MEAN CORPUSCULAR HGB 32.7 pg (27.0-31.0); MEAN CORPUSCULAR HGB CONC 33.4 g/dl (33.0-37.0); MEAN PLATELET VOLUME 10.9 fl (9.6-12.3); MONO # 0.3 10*3/uL (0.1-1.0); MONO % 6.3 % (3.0-9.0); NEUT # 3.3 10*3/uL (2.3-7.9); NEUT % 79.3 % (47.0-73.0); PLATELET COUNT AUTOMATED 80 10*3/uL (130-400); RED BLOOD COUNT 3.21 10*6/uL (4.50-5.90); RED CELL DISTRI WIDTH 14.6 % (0-14.5); WHITE BLOOD COUNT 4.2 10*3/uL (4.8-10.8)
[2019-12-15 10:04] LABS: ACT PARTIAL THROMBO TIME 27.6 SECONDS (20.0-32.1); INTERNATIONAL NORM RATIO 1.3 (2.0-3.5)
[2019-12-15 10:10] LABS: ALBUMIN 2.8 gm/dl (3.1-4.5); CREATININE 6.93 mg/dL (0.70-1.30); POTASSIUM 5.2 mmol/L (3.5-5.1)
[2019-12-15 10:13] LABS: TROPONIN I 0.122 ng/ml (<0.045)
== END 2019-12-15 11:15 | disposition short-term general hospital (02) ==
LOC: ED 09:09
PROVIDERS: Emergency Medicine
DX: R41.82 Altered mental status, unspecified (principal); R50.9 Fever, unspecified; K21.9 Gastro-esophageal reflux disease without esophagitis; E03.9 Hypothyroidism, unspecified; M19.90 Unspecified osteoarthritis, unspecified site; I12.0 Hypertensive chronic kidney disease with stage 5 chronic kidney disease or end stage renal disease; N18.6 End stage renal disease; Z88.8 Allergy status to other drugs, medicaments and biological substances; Z79.899 Other long term (current) drug therapy; Z86.73 Personal history of transient ischemic attack (TIA), and cerebral infarction without residual deficits; Z99.2 Dependence on renal dialysis; Z90.5 Acquired absence of kidney

== ENCOUNTER → 2020-02-04 | Day surgery (SDC) | payer OTHER ==
[~2020-02-04] VITALS: Ht 180.3 cm; Wt 71.7 kg
[~2020-02-04] MED LIST changes: +DERMACINRX5000 UNIT PO; +GOOD SENSE ASPI81 M1 PO; +KEPPRA500 MG PO; +PREDNISONE20 M1 PO; +RIVASTIGMINE T1.5 M1 PO; +SERTRALINE HYDR50 MG PO; -SERTRALINE50 MG PO
[2020-02-04 07:45] VITALS: BP 149/82
[2020-02-04 08:49] VITALS: BP 111/50
[2020-02-04 09:04] VITALS: BP 103/61
[2020-02-04 09:19] VITALS: BP 123/69
== END | disposition home or self-care (01) ==
LOC: SDC 02-03 10:15
DX: R19.7 Diarrhea, unspecified (principal); D12.8 Benign neoplasm of rectum; K57.30 Diverticulosis of large intestine without perforation or abscess without bleeding; K52.89 Other specified noninfective gastroenteritis and colitis; I12.0 Hypertensive chronic kidney disease with stage 5 chronic kidney disease or end stage renal disease; N18.6 End stage renal disease; K63.89 Other specified diseases of intestine; I25.2 Old myocardial infarction; M10.9 Gout, unspecified; Z98.890 Other specified postprocedural states; Z79.899 Other long term (current) drug therapy; Z86.010 Personal history of colon polyps

== ENCOUNTER → 2020-02-14 | Outpatient (CLI) | payer OTHER ==
[2020-02-14 08:34] LABS: EOS % 0.3 % (1.0-4.0); HEMATOCRIT 36.5 % (42.0-52.0); LYMPH # 0.4 10*3/uL (1.3-4.4); LYMPH % 8.9 % (27.0-41.0); MEAN CELL VOLUME 98.4 fl (80.0-94.0); MEAN CORPUSCULAR HGB 31.8 pg (27.0-31.0); MEAN CORPUSCULAR HGB CONC 32.3 g/dl (33.0-37.0); MONO # 0.3 10*3/uL (0.1-1.0); MONO % 8.1 % (3.0-9.0); NEUT # 3.2 10*3/uL (2.3-7.9); NEUT % 82.2 % (47.0-73.0); PLATELET COUNT AUTOMATED 90 10*3/uL (130-400); RED BLOOD COUNT 3.71 10*6/uL (4.50-5.90); RED CELL DISTRI WIDTH 14.4 % (0-14.5); WHITE BLOOD COUNT 3.9 10*3/uL (4.8-10.8)
[2020-02-14 10:14] LABS: ALBUMIN 3.1 gm/dl (3.1-4.5); THYROID STIM HORMONE (HS) 3.82 uIU/ml (0.358-4.75); TOTAL PROTEIN 7.2 gm/dL (6.4-8.2)
[2020-02-14 10:23] LABS: POTASSIUM 6.8 mmol/L (3.5-5.1)
== END | disposition home or self-care (01) ==
LOC: LAB 08:07
PROVIDERS: Internal Medicine
DX: Z12.5 Encounter for screening for malignant neoplasm of prostate (principal); I10 Essential (primary) hypertension; E03.9 Hypothyroidism, unspecified

== ENCOUNTER → 2020-08-29 | Outpatient (CLI) | payer OTHER ==
[2020-08-29 10:38] LABS: ALBUMIN 3.4 gm/dl (3.1-4.5)
[2020-08-29 10:41] LABS: BILIRUBIN, DIRECT 0.2 mg/dL (0.0-0.2); TOTAL PROTEIN 7.1 gm/dL (6.4-8.2)
== END | disposition home or self-care (01) ==
LOC: LAB 09:44
PROVIDERS: ATTEND Internal Medicine
DX: I25.9 Chronic ischemic heart disease, unspecified (principal); N18.6 End stage renal disease; I42.9 Cardiomyopathy, unspecified

== ENCOUNTER → 2020-12-05 | Outpatient (CLI) | payer OTHER | END | disposition home or self-care (01) | LOC: US 08:20 | PROVIDERS: ATTEND Internal Medicine Gastroenterology | DX: K76.0 Fatty (change of) liver, not elsewhere classified (principal); K80.20 Calculus of gallbladder without cholecystitis without obstruction; N28.1 Cyst of kidney, acquired; J90 Pleural effusion, not elsewhere classified; I78.8 Other diseases of capillaries; Z90.5 Acquired absence of kidney ==

== ENCOUNTER 2021-03-30 11:29 | Emergency (ER) | payer OTHER ==
[2021-03-30 11:56] LABS: BASO # 0.1 10*3/uL (0.0-0.1); BASO % 0.7 % (0.0-1.0); EOS # 0.3 10*3/uL (0.0-0.4); HEMATOCRIT 43.2 % (42.0-52.0); LYMPH # 1.6 10*3/uL (1.3-4.4); LYMPH % 24.3 % (27.0-41.0); MEAN CELL VOLUME 99.5 fl (80.0-94.0); MEAN CORPUSCULAR HGB 30.4 pg (27.0-31.0); MEAN CORPUSCULAR HGB CONC 30.6 g/dl (33.0-37.0); MEAN PLATELET VOLUME 11.2 fl (9.6-12.3); MONO # 0.3 10*3/uL (0.1-1.0); MONO % 4.3 % (3.0-9.0); NEUT # 4.4 10*3/uL (2.3-7.9); NEUT % 66.1 % (47.0-73.0); PLATELET COUNT AUTOMATED 118 10*3/uL (130-400); RED BLOOD COUNT 4.34 10*6/uL (4.50-5.90); RED CELL DISTRI WIDTH 15.2 % (0-14.5); WHITE BLOOD COUNT 6.7 10*3/uL (4.8-10.8)
[2021-03-30 12:10] LABS: ALBUMIN 2.9 gm/dl (3.1-4.5); CREATININE 6.62 mg/dL (0.70-1.30); POTASSIUM 4.8 mmol/L (3.5-5.1); TOTAL PROTEIN 6.5 gm/dL (6.4-8.2)
[2021-03-30 12:13] LABS: TROPONIN I 0.222 ng/ml (<0.045)
== END 2021-03-31 01:11 | disposition short-term general hospital (02) ==
LOC: ED 11:29
PROVIDERS: Emergency Medicine
DX: I46.9 Cardiac arrest, cause unspecified (principal); Z88.6 Allergy status to analgesic agent; Z88.8 Allergy status to other drugs, medicaments and biological substances; Z79.899 Other long term (current) drug therapy; Z79.82 Long term (current) use of aspirin; Z95.5 Presence of coronary angioplasty implant and graft; Z90.5 Acquired absence of kidney